=== PATIENT | male | born 1965 | race Caucasian/White ===

== ENCOUNTER 2021-11-10 18:57 | Inpatient (IN) | payer MEDICARE ==
[~2021-11-10] VITALS: Ht 182.9 cm; Wt 75.3 kg
[~2021-11-10 18:57] MED LIST: AMLODIPINE BESYL5 MG PO; ANTIVERT 25MG T25 MG PO; ASPIRIN EC81 MG PO; ATORVASTATIN CA20 MG PO; BROVANA15 MCG/2 M NEB; CEFUROXIME500 MG PO; CLOPIDOGREL75 MG PO; COLACE 100MG C100 MG PO; COREG 12.5MG12.5 MG PO; FUROSEMIDE40 MG PO; HYDROCHLOROTHIA25 MG PO; LIDOCAINE PAIN1 EACH EXT; LISINOPRIL40 MG PO; LOPRESSOR 25 MG25 MG PO; LOPRESSOR 50 MG50 MG PO; NITROSTAT0.4 MG SL; OXYCONTIN10 MG PO; PERCOCET 5/325 T1 EA PO; PREDNISONE 50 M50 MG PO; PULMICORT FLE180 MCG INH; VENTOLIN HFA 66.7 GM INH; ZESTRIL 40 MG T40 MG PO; ZESTRIL40 MG PO; ZITHROMAX250 MG PO
[2021-11-10 19:34] LABS: HEMOGLOBIN 16.4 gm/dl (14.0-17.5); WHITE BLOOD COUNT 18.4 K/UL (4.5-11.0)
[2021-11-10 20:14] LABS: BUN/CREATININE RATIO 7 (0-10)
[2021-11-11 05:11] LABS: HEMOGLOBIN 15.5 gm/dl (14.0-17.5); RED BLOOD COUNT 4.76 M/UL (4.20-5.50); WHITE BLOOD COUNT 22.9 K/UL (4.5-11.0)
--- NOTE | 2021-11-11 05:43 | NUR ---
LATE ENTRY FOR 11/11/2021 @ 0200 - Radiology contacted this RN, for results pertaining to patient's CT of abd/pelvis done in ED. 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 MD Liriano informed of results, states to place on telemetry with pulse ox monitoring, and to change patient's level of care to Med-Surg. Obtained order for chest CTA in AM. LATE ENTRY FOR 11/11/2021 @ 0400 - costuming supervisor contacted, stated that patient will need transferred to another facility for vascular consultation. LATE ENTRY FOR 11/11/2021 @ 0405 - MD Liriano contacted for possible transfer of patient, MD states she would like for his blood glucose and lactic acid to be stablized before transfer process initiated. Obtained order for Heparin drip and bolus per DVT protocol. LATE ENTRY FOR 11/11/2021 @ 3596 - Pharmacist Frank contacted this RN, stating that MD Liriano contacted pharmacy, is changing Heparin to Lovenox 70mg SQ BID.
[2021-11-11 05:49] LABS: BUN/CREATININE RATIO 10 (0-10)
[2021-11-11] MEDS ORDERED: GABAPENTIN600 MG PO (10:21)
[2021-11-11] MEDS ORDERED: METOPROLOL TART50 MG PO (10:22)
[2021-11-11] MEDS ORDERED: HYDROCODON-ACE1 EAC6 PO (10:22)
[2021-11-11] MEDS ORDERED: AMLODIPINE BESY10 MG PO (10:23)
[2021-11-11] MEDS ORDERED: PROAIR HFA8.5 GM INH (10:23)
[2021-11-12 03:15] LABS: RED BLOOD COUNT 4.92 M/UL (4.20-5.50); WHITE BLOOD COUNT 21.3 K/UL (4.5-11.0)
[2021-11-12 03:31] LABS: BUN/CREATININE RATIO 9 (0-10)
--- NOTE | 2021-11-12 06:16 | NUR ---
MD CONTACTED AT 0600 BECAUSE PATIENT STATES HE WANTS TO LEAVE AMA BECAUSE NO ONE WILL LET HIM GO OUT TO SMOKE. PT. WAS EXPLAINED IMPORTANCE OF BED ALARM RELATED TO RECENT FALL AND WHY NOT LEAVING THE FLOOR WAS IMPORTANT. PT WAS OFFERED NICOTINE PATCH AND DECLINED. MD CAME TO FLOOR AND OFFERED PATCH AND PT STILL DECLINED. MEDS WAS OFFERED FOR RELIEF OF ANXIETY- PT DECLINED. MD AND NURSE EXPLAINED THE IMPORTANCE OF STAYING FOR TREATMENT OF LIFE THREATENING CONDITION. PT STILL WANTS TO SIGN OUT AMA.
[2021-11-14 18:10] LABS: ORGANISM ID Not indicated. (.); SPECIMEN SOURCE Urine (.); STREPTOCOCCUS PNEUMONIAE AG Negative (Negative)
== END 2021-11-12 06:10 | disposition left against medical advice (07) | DRG 871 ==
LOC: ER1 18:57 → CDU 22:03 → MED SURG 4 22:03 → PROG CARE 11-11 13:40
PROVIDERS: Emergency Medicine; Internal Medicine; ADMIT Internal Medicine
DX: A41.9 Sepsis, unspecified organism (principal); G93.41 Metabolic encephalopathy; I74.5 Embolism and thrombosis of iliac artery; Z20.822 Contact with and (suspected) exposure to COVID-19; F11.20 Opioid dependence, uncomplicated; R65.20 Severe sepsis without septic shock; G89.29 Other chronic pain; M54.9 Dorsalgia, unspecified; I11.0 Hypertensive heart disease with heart failure; I50.9 Heart failure, unspecified; W18.30XA Fall on same level, unspecified, initial encounter; E11.65 Type 2 diabetes mellitus with hyperglycemia; J44.9 Chronic obstructive pulmonary disease, unspecified; E78.5 Hyperlipidemia, unspecified; Z79.4 Long term (current) use of insulin; Z91.14 Patient's other noncompliance with medication regimen; Z83.3 Family history of diabetes mellitus
CPT/HCPCS: 36415; 36600; 70450; 71045; 71100; 72100; 72220; 73070; 80053; 80061; 80202; 80307; 81001; 82009; 82550; 82553; 82803; 82962; 83036; 83605; 83735; 83880; 84100; 84132; 84484; 85025; 85027; 85610; 85652; 85730; 86140; 87040; 87070; 87086; 87205; 87278; 87899; 93005; 94640; 94664; 94760; 96361; 96365; 96366; 96375; 99285; G0480; J0360; J0692; J1644; J1650; J2060; J2270; J3370; J3475; J7030; J7070; Q9967